=== PATIENT | female | born 1985 | race Caucasian/White ===

== ENCOUNTER 2016-09-08 00:05 | Emergency (ER) | payer OTHER ==
--- NOTE | 2016-09-08 01:45 | ED CLINICAL REPORT ---
Clinical Report - Physicians/Mid Levels [facility] [address] [place] [address] 09/08/2016 0:06 Patient: REJI HERNANDEZ Time Seen: 00:40. Arrived- By private vehicle. Historian- patient. HISTORY OF PRESENT ILLNESS Chief Complaint: SKIN RASH. This started several days ago and is still present and now worse. It is described as itchy and painful. It has been located on the trunk. No cause has been identified. (Pt states she initially noticed a very small area of erythema, which was not painful. However, the area continued to grow, and about 3 days ago, began becoming painful. Pt denies fevers or a feeling of illness.). Similar symptoms previously: None. Recent medical care: Not recently seen/assessed. REVIEW OF SYSTEMS No fever, chills, sore throat, cough or difficulty breathing. No hoarseness, lump in throat, enlarged lymph nodes, headache or eye irritation. No chest pain, abdominal pain, nausea, diarrhea or difficulty with urination. No joint pain or vomiting. All systems otherwise negative, except as recorded above. PAST HISTORY Problems: LNMP - Last Normal Menstrual Period. Epilepsy. Additional Surgeries: None. Medications: Folic Acid Oral 1 mg, daily. Multi Vitamin Daily Oral 1 daily. Keppra Oral (Tablet 500 mg), 2x a day. LaMICtal Oral (Tablet 200 mg), 2 x daily (as well as 25mg 2x daily). Allergies: No Known Drug Allergy. SOCIAL HISTORY Never smoker. No alcohol use or drug use. ADDITIONAL NOTES The nursing notes have been reviewed. PHYSICAL EXAM Vital Signs: 09/08/2016 00:12 BP: 138/73. HR: 75. RR: 16. O2 saturation: 100%. Temp: 98.3 F. Pain level now: 5/10. Have been reviewed. Appearance: Alert. Oriented X3. No acute distress. Eyes: Pupils equal, round and reactive to light. Conjunctivae and eyelids normal. ENT: Nose normal. Neck: Neck supple. CVS: Normal heart rate and rhythm. Heart sounds normal. Respiratory: No respiratory distress. Breath sounds normal. Abdomen: No organomegaly. (Erythema of L abdominal wall, as noted above.). Skin: Skin warm and dry. Medium area of erythema with tenderness and warmth to the abdomen. Extremities: Normal external inspection. Extremities nontender. Neuro: Oriented X 3. No motor deficit. No sensory deficit. LABS, X-RAYS, AND EKG Pulse Oximetry: 09/08/2016 00:12 O2 saturation: 100%. (FIO2 - room air). Interpretation: normal. PROGRESS AND PROCEDURES Course of Care: D/w pt that rash has the appearance of cellulitis. Pt has been started on abx in the ED for this. No s/s of systemic illness at this time. Patient counseled in person regarding the patient's stable condition, diagnosis and need for follow-up. Concerns were addressed. Old medical records reviewed. Disposition: Discharged. Condition: stable. CLINICAL IMPRESSION Cellulitis of the abdominal wall. INSTRUCTIONS Warnings: GENERAL WARNINGS: Return or contact your physician immediately if your condition worsens or changes unexpectedly, if not improving as expected, or if other problems arise. Your Current Medications: CONTINUE TAKING THE FOLLOWING MEDICATIONS: Folic Acid Oral : 1 mg daily. Keppra Oral : Tablet 500 mg, 2x a day. LaMICtal Oral : Tablet 200 mg, 2 x daily, as well as 25mg 2x daily. Multi Vitamin Daily Oral : 1 daily. Prescription Medications: Bactrim DS 800 mg / 160 mg: take 1 tablet orally every 12 hours for 7 days. No refill. Substitution is permissible. Follow-up: Follow up with your doctor in seven days if not better. Understanding of the discharge instructions verbalized by patient. (Electronically signed by Le Chi MD 09/09/2016 4:59) Addenda for SVETA ZUÑIGA HENRI VisitID: [id number] Date: 09/08/2016 09/08/2016 14:[address] [facility] pharmacy in [place] called because Bactrim DS is contraindicated with patient who have folate deficiency anemia and requested a substituate. Discussed with Dr. Landry and Aniya Collins and they changed presciption to Clindamycin 150 mg QID #28 7 days (Electronically signed by Kelley Deng1 - 09/08/2016 14:05)
--- NOTE | 2016-09-08 01:45 | ED ORDER SUMMARY ---
..... Patient: REJI HERNANDEZ OrderSheet [facility] VisitID: [id number] [address] [place] [address] 31y, F Registration Date/Time: 09/08/2016 ORDER SHEET Weight: 63.5 kg (stated) Allergies: No Known Drug Allergy GENERAL ORDERS: MEDICATION ORDERS: Bactrim DS PO (Tablet 800-160 mg) 1 tab (NOW) (01:43 09/08/2016 Angi ROSARIO) (1:58 Andreas Latham) IV FLUIDS: ORDER SHEET NOTES: [Electronically signed by Kamron Gonzalez R.N. (02:13 09/08/2016)] [Electronically signed by Le Chi MD (04:59 09/09/2016)] [Electronically locked/signed by Kamron Gonzalez R.N. (02:13 09/08/2016)]
--- NOTE | 2016-09-08 01:45 | ED CLINICAL REPORT ---
Clinical Report - Physicians/Mid Levels [facility] [address] [place] [address] 09/08/2016 0:06 Patient: REJI HERNANDEZ Time Seen: 00:40. Arrived- By private vehicle. Historian- patient. HISTORY OF PRESENT ILLNESS Chief Complaint: SKIN RASH. This started several days ago and is still present and now worse. It is described as itchy and painful. It has been located on the trunk. No cause has been identified. (Pt states she initially noticed a very small area of erythema, which was not painful. However, the area continued to grow, and about 3 days ago, began becoming painful. Pt denies fevers or a feeling of illness.). Similar symptoms previously: None. Recent medical care: Not recently seen/assessed. REVIEW OF SYSTEMS No fever, chills, sore throat, cough or difficulty breathing. No hoarseness, lump in throat, enlarged lymph nodes, headache or eye irritation. No chest pain, abdominal pain, nausea, diarrhea or difficulty with urination. No joint pain or vomiting. All systems otherwise negative, except as recorded above. PAST HISTORY Problems: LNMP - Last Normal Menstrual Period. Epilepsy. Additional Surgeries: None. Medications: Folic Acid Oral 1 mg, daily. Multi Vitamin Daily Oral 1 daily. Keppra Oral (Tablet 500 mg), 2x a day. LaMICtal Oral (Tablet 200 mg), 2 x daily (as well as 25mg 2x daily). Allergies: No Known Drug Allergy. SOCIAL HISTORY Never smoker. No alcohol use or drug use. ADDITIONAL NOTES The nursing notes have been reviewed. PHYSICAL EXAM Vital Signs: 09/08/2016 00:12 BP: 138/73. HR: 75. RR: 16. O2 saturation: 100%. Temp: 98.3 F. Pain level now: 5/10. Have been reviewed. Appearance: Alert. Oriented X3. No acute distress. Eyes: Pupils equal, round and reactive to light. Conjunctivae and eyelids normal. ENT: Nose normal. Neck: Neck supple. CVS: Normal heart rate and rhythm. Heart sounds normal. Respiratory: No respiratory distress. Breath sounds normal. Abdomen: No organomegaly. (Erythema of L abdominal wall, as noted above.). Skin: Skin warm and dry. Medium area of erythema with tenderness and warmth to the abdomen. Extremities: Normal external inspection. Extremities nontender. Neuro: Oriented X 3. No motor deficit. No sensory deficit. LABS, X-RAYS, AND EKG Pulse Oximetry: 09/08/2016 00:12 O2 saturation: 100%. (FIO2 - room air). Interpretation: normal. PROGRESS AND PROCEDURES Course of Care: D/w pt that rash has the appearance of cellulitis. Pt has been started on abx in the ED for this. No s/s of systemic illness at this time. Patient counseled in person regarding the patient's stable condition, diagnosis and need for follow-up. Concerns were addressed. Old medical records reviewed. Disposition: Discharged. Condition: stable. CLINICAL IMPRESSION Cellulitis of the abdominal wall. INSTRUCTIONS Warnings: GENERAL WARNINGS: Return or contact your physician immediately if your condition worsens or changes unexpectedly, if not improving as expected, or if other problems arise. Your Current Medications: CONTINUE TAKING THE FOLLOWING MEDICATIONS: Folic Acid Oral : 1 mg daily. Keppra Oral : Tablet 500 mg, 2x a day. LaMICtal Oral : Tablet 200 mg, 2 x daily, as well as 25mg 2x daily. Multi Vitamin Daily Oral : 1 daily. Prescription Medications: Bactrim DS 800 mg / 160 mg: take 1 tablet orally every 12 hours for 7 days. No refill. Substitution is permissible. Follow-up: Follow up with your doctor in seven days if not better. Understanding of the discharge instructions verbalized by patient. (Electronically signed by Le Chi MD 09/09/2016 4:59) Addenda for SVETA ZUÑIGA HENRI VisitID: [id number] Date: 09/08/2016 09/08/2016 14:05 [facility] pharmacy in [place] called because Bactrim DS is contraindicated with patient who have folate deficiency anemia and requested a substituate. Discussed with Dr. Landry and Aniya Collins and they changed presciption to Clindamycin 150 mg QID #28 7 days (Electronically signed by Kelley Deng1 - 09/08/2016 14:05)
--- NOTE | 2016-09-08 01:45 | ED ORDER SUMMARY ---
..... Patient: REJI HERNANDEZ OrderSheet [facility] VisitID: [id number] [address] [place] [address] 31y, F Registration Date/Time: 09/08/2016 ORDER SHEET Weight: 63.5 kg (stated) Allergies: No Known Drug Allergy GENERAL ORDERS: MEDICATION ORDERS: Bactrim DS PO (Tablet 800-160 mg) 1 tab (NOW) (01:43 09/08/2016 Angi ROSARIO) (1:58 Andreas Latham) IV FLUIDS: ORDER SHEET NOTES: [Electronically signed by Kamron Gonzalez R.N. (02:13 09/08/2016)] [Electronically signed by Le Chi MD (04:59 09/09/2016)] [Electronically locked/signed by Kamron Gonzalez R.N. (02:13 09/08/2016)]
--- NOTE | 2016-09-08 01:45 | ED NURSING NOTES ---
Clinical Report - Nurses [facility] [address] [place] [address] 09/08/2016 0:06 Patient: REJI HERNANDEZ TRIAGE Triage time 0012. Acuity: LEVEL 3. Chief Complaint: SKIN RASH and TENDER AREA. --00:22 Audra Wilson R.N. 00:12 09/08/16. BP: 138/73. HR: 75. RR: 16. O2 saturation: 100%. Temp: 98.3 F. Pain level now: 01/15. --00:22 Audra Wilson R.N. Weight: 63.5 kg stated. Height/Length: 60 inches Per Patient. BMI: 27.3. --00:20 Audra Wilson R.N. Medications Keppra Oral (Tablet 500 mg), 2x a day. LaMICtal Oral (Tablet 200 mg), 2 x daily (as well as 25mg 2x daily). --00:19 Audra Wilson R.N. Folic Acid Oral 1 mg, daily. Multi Vitamin Daily Oral 1 daily. --00:20 Audra Wilson R.N. Allergies No Known Drug Allergy. --00:19 Audra Wilson R.N. History Arrived by private vehicle. Historian: patient. Accompanied by friend. Reported as (left chest wall redness noted, pt states it started about 1 week ago, worse last 3 days, and started draining tonight). ( pt states it is itchy and painful). PAST MEDICAL HX: Last normal menstrual period- started today. SOCIAL HX: Never smoker. No alcohol use. --00:22 Audra Wilson R.N. PROBLEMS: Epilepsy. --00:21 Audra Wilson R.N. ADDITIONAL SURGERIES: None. --00:21 Audra Wilson R.N. Interventions ID band on patient. To treatment room. --00:22 Audra Wilson R.N. PHYSICAL ASSESSMENT 00:12. Ambulatory to room. Patient gowned. GENERAL / NEURO / PSYCH: Alert. The patient does not appear to be in acute distress. Oriented X 4. RESPIRATORY: Respirations not labored. CVS: Capillary refill less than 2 seconds. SKIN: Drainage. Skin tenderness present. Swelling present. Increased warmth present. Erythema present. --00:23 Audra Wilson R.N. NURSING PROGRESS NOTES 00:12. Patient gowned. Head of bed elevated. Reassurance given. Patient identifiers checked. Call light placed in reach. Side rails up. Bed placed in lowest position. Patient ready for evaluation- chart flagged. --00:23 Audra Wilson R.N. 01:19 09/08/16. Care transferred and report given (Lucretia ONEIL). --01:19 Audra Wilson R.N. 01:40 09/08/2016 Bactrim DS (Sulfamethoxazole-TMP DS) PO Tablets 1 tab given. Allergies verified and confirmed 5 rights. --01:58 Kamron Gonzalez R.N. DISPOSITION / DISCHARGE 01:45 09/08/16. BP: 111/56. HR: 64. RR: 16. O2 saturation: 100% on room air. Temp: 97.6 F (oral). Pain level now: 09/17. --02:07 Kamron Gonzalez R.N. Departure time: 0145. --02:07 Kamron Gonzalez R.N. 01:45. Condition at departure: improved. No learning barriers present. Discharge instructions provided and reviewed with the patient. Reviewed medication(s) dosing information (prescription given to pt). Reviewed referral to a supervisor extrusion and family practice for followup. Patient and family verbalized understanding. Written instructions provided in [place]. The patient was discharged by the physician. She was discharged home and accompanied by spout liner. She left the Emergency Department ambulatory and via private vehicle. Patent Legal Assistant driving. --02:11 Kamron Gonzalez R.N. Locked/Released at 09/08/2016 2:13 by Kamron Gonzalez R.N.
--- NOTE | 2016-09-08 01:45 | ED NURSING NOTES ---
Clinical Report - Nurses [facility] [address] [place] [address] 09/08/2016 0:06 Patient: REJI HERNANDEZ TRIAGE Triage time 0012. Acuity: LEVEL 3. Chief Complaint: SKIN RASH and TENDER AREA. --00:22 Audra Wilson R.N. 00:12 09/08/16. BP: 138/73. HR: 75. RR: 16. O2 saturation: 100%. Temp: 98.3 F. Pain level now: 01/15. --00:22 Audra Wilson R.N. Weight: 63.5 kg stated. Height/Length: 60 inches Per Patient. BMI: 27.3. --00:20 Audra Wilson R.N. Medications Keppra Oral (Tablet 500 mg), 2x a day. LaMICtal Oral (Tablet 200 mg), 2 x daily (as well as 25mg 2x daily). --00:19 Audra Wilson R.N. Folic Acid Oral 1 mg, daily. Multi Vitamin Daily Oral 1 daily. --00:20 Audra Wilson R.N. Allergies No Known Drug Allergy. --00:19 Audra Wilson R.N. History Arrived by private vehicle. Historian: patient. Accompanied by friend. Reported as (left chest wall redness noted, pt states it started about 1 week ago, worse last 3 days, and started draining tonight). ( pt states it is itchy and painful). PAST MEDICAL HX: Last normal menstrual period- started today. SOCIAL HX: Never smoker. No alcohol use. --00:22 Audra Wilson R.N. PROBLEMS: Epilepsy. --00:21 Audra Wilson R.N. ADDITIONAL SURGERIES: None. --00:21 Audra Wilson R.N. Interventions ID band on patient. To treatment room. --00:22 Audra Wilson R.N. PHYSICAL ASSESSMENT 00:12. Ambulatory to room. Patient gowned. GENERAL / NEURO / PSYCH: Alert. The patient does not appear to be in acute distress. Oriented X 4. RESPIRATORY: Respirations not labored. CVS: Capillary refill less than 2 seconds. SKIN: Drainage. Skin tenderness present. Swelling present. Increased warmth present. Erythema present. --00:23 Audra Wilson R.N. NURSING PROGRESS NOTES 00:12. Patient gowned. Head of bed elevated. Reassurance given. Patient identifiers checked. Call light placed in reach. Side rails up. Bed placed in lowest position. Patient ready for evaluation- chart flagged. --00:23 Audra Wilson R.N. 01:19 09/08/16. Care transferred and report given (Lucretia ONEIL). --01:19 Audra Wilson R.N. 01:40 09/08/2016 Bactrim DS (Sulfamethoxazole-TMP DS) PO Tablets 1 tab given. Allergies verified and confirmed 5 rights. --01:58 Kamron Gonzalez R.N. DISPOSITION / DISCHARGE 01:45 09/08/16. BP: 111/56. HR: 64. RR: 16. O2 saturation: 100% on room air. Temp: 97.6 F (oral). Pain level now: 09/17. --02:07 Kamron Gonzalez R.N. Departure time: 0145. --02:07 Kamron Gonzalez R.N. 01:45. Condition at departure: improved. No learning barriers present. Discharge instructions provided and reviewed with the patient. Reviewed medication(s) dosing information (prescription given to pt). Reviewed referral to a benefits clerk and family practice for followup. Patient and family verbalized understanding. Written instructions provided in [place]. The patient was discharged by the physician. She was discharged home and accompanied by refrigeration mechanic helper. She left the Emergency Department ambulatory and via private vehicle. Devil Tender driving. --02:11 Kamron Gonzalez R.N. Locked/Released at 09/08/2016 2:13 by Kamron Gonzalez R.N.
--- NOTE | 2016-09-09 04:59 | ED MED RECONCILIATION SUMMARY ---
Patient: BANGURAREJI HUBBARD Medication Reconciliation Report [facility] VisitID: [id number] [address] [place] [address] 31y, F Registration Date/Time: 09/08/2016 Weight: 63.5 kg Height/Length: 60 in. BMI: 27.3 ALLERGIES: No Known Drug Allergy The patient's Home Medications are listed below: CONTINUE TAKING THE FOLLOWING MEDICATIONS: Folic Acid Oral 1 mg, daily Keppra Oral (500 mg), 2x a day LaMICtal Oral (200 mg), 2 x daily, as well as 25mg 2x daily Multi Vitamin Daily Oral 1 daily The source(s) of the original Home Medication information: Not obtained. The following Medications were given to the patient in the Emergency Department: Bactrim DS [PO] PO 1 tab, administered: 09/08/2016 1:40:00 AM The following Medications were prescribed to the patient: Bactrim DS 800 mg / 160 mg: take 1 tablet orally every 12 hours for 7 days. No refill. Substitution is permissible. -- Le Chi MD
--- NOTE | 2016-09-09 04:59 | ED MAR SUMMARY ---
..... Medication Administration Record [facility] [address] [place] [address] Patient: REJI HERNANDEZ Visit ID: [id number] 31y, F Weight: 63.5 kg Height/Length: 60 in BMI: 27.3 ALLERGIES: No Known Drug Allergy Given 01:40 09/08/2016 Kamron Gonzalez R.N. Medication Administered: BACTRIM DS [PO] (SULFAMETHOXAZOLE-TMP DS), Dose: 1 tab Tablets PO. Medication Ordered: Bactrim DS PO (Tablet 800-160 mg) 1 tab (NOW).
--- NOTE | 2016-09-09 04:59 | ED DISCHARGE INSTRUCTIONS ---
Patient: REJI HERNANDEZ General Instructions [facility] VisitID: [id number] [place] [address] 31y, F Registration Date/Time: 09/08/2016 Cellulitis of the abdominal wall. INSTRUCTIONS Warnings: GENERAL WARNINGS: Return or contact your physician immediately if your condition worsens or changes unexpectedly, if not improving as expected, or if other problems arise. Your Current Medications: CONTINUE TAKING THE FOLLOWING MEDICATIONS: Folic Acid Oral : 1 mg daily. Keppra Oral : Tablet 500 mg, 2x a day. LaMICtal Oral : Tablet 200 mg, 2 x daily, as well as 25mg 2x daily. Multi Vitamin Daily Oral : 1 daily. Prescription Medications: Bactrim DS 800 mg / 160 mg: take 1 tablet orally every 12 hours for 7 days. No refill. Substitution is permissible. Follow-up: Follow up with your doctor in seven days if not better. Understanding of the discharge instructions verbalized by patient. ADDITIONAL INFORMATION Cellulitis You have an infection of the skin known as cellulitis. This usually starts with a scrape, cut, insect bite, blister or other opening in the skin which becomes infected. This is a serious condition. It must be watched closely to be sure the infection is not spreading. With antibiotic treatment, the size of the red area will gradually shrink in size until the skin returns to normal. This will take 7-10 days. The red area should never increase in size once the antibiotic medicine has been started. Occasionally, an infection will be resistant to one antibiotic and another one will have to be used. Home Care: 1) Limit the use of the affected part, since excess movement can cause the infection to spread. 2) If the infection is on your leg, walk as little as possible during the first few days of the treatment. Keep your leg elevated while sitting. This will reduce swelling. 3) Take all of the antibiotic medicine exactly as directed until it is gone. Be careful not to miss any doses, especially during the first seven days. Follow Up with your doctor or this facility as directed. Check the infected area daily for the warning signs listed below. Get Prompt Medical Attention if any of the following occur: -- Spreading area of redness -- Increasing swelling or pain -- Appearance of pus or drainage -- Fever over 100.4 F (38.0 C) oral, or over 101.4 F (38.6 C) rectal, after two days on antibiotics You have been given the following additional information: Cellulitis (Electronically signed by Le Chi MD 09/09/2016 4:59)
--- NOTE | 2016-09-09 04:59 | ED MED RECONCILIATION SUMMARY ---
Patient: BANGURAREIJ HUBBARD Medication Reconciliation Report [facility] VisitID: [id number] [address] [place] [address] 31y, F Registration Date/Time: 09/08/2016 Weight: 63.5 kg Height/Length: 60 in. BMI: 27.3 ALLERGIES: No Known Drug Allergy The patient's Home Medications are listed below: CONTINUE TAKING THE FOLLOWING MEDICATIONS: Folic Acid Oral 1 mg, daily Keppra Oral (500 mg), 2x a day LaMICtal Oral (200 mg), 2 x daily, as well as 25mg 2x daily Multi Vitamin Daily Oral 1 daily The source(s) of the original Home Medication information: Not obtained. The following Medications were given to the patient in the Emergency Department: Bactrim DS [PO] PO 1 tab, administered: 09/08/2016 1:40:00 AM The following Medications were prescribed to the patient: Bactrim DS 800 mg / 160 mg: take 1 tablet orally every 12 hours for 7 days. No refill. Substitution is permissible. -- Le Chi MD
--- NOTE | 2016-09-09 04:59 | ED MAR SUMMARY ---
..... Medication Administration Record [facility] [address] [place] [address] Patient: REJI HERNANDEZ Visit ID: [id number] 31y, F Weight: 63.5 kg Height/Length: 60 in BMI: 27.3 ALLERGIES: No Known Drug Allergy Given 01:40 09/08/2016 Kamron Gonzalez R.N. Medication Administered: BACTRIM DS [PO] (SULFAMETHOXAZOLE-TMP DS), Dose: 1 tab Tablets PO. Medication Ordered: Bactrim DS PO (Tablet 800-160 mg) 1 tab (NOW).
== END 2016-09-08 01:45 | disposition home or self-care (01) ==
LOC: ED SRH 00:05
DX: L03.311 Cellulitis of abdominal wall (principal); G40.909 Epilepsy, unspecified, not intractable, without status epilepticus; Z79.01 Long term (current) use of anticoagulants; Z79.84 Long term (current) use of oral hypoglycemic drugs; Z79.899 Other long term (current) drug therapy